=== PATIENT | male | born 1975 | race African-American/Black ===

== ENCOUNTER 2021-11-17 20:42 | Emergency (ER) | payer MEDICAID ==
[~2021-11-17] VITALS: Ht 185.4 cm; Wt 92.0 kg
[~2021-11-17 20:42] MED LIST: ASPI-1497 PO; GLIP5TAB12 PO; METF-414 PO; OMEP20TA2 PO
[2021-11-17 22:18] LABS: BASOPHILS % 0.7 % (0.0-2.0); HEMATOCRIT. 41.1 % (42.0-52.0); HEMOGLOBIN. 13.6 g/dL (14.0-18.0); LYMPHOCYTES % 37.8 % (20.0-50.0); MEAN CORPUSCULAR HEMOGLOBIN 27.8 pg (28.0-32.0); MONOCYTES % 5.7 % (2.0-8.0); NEUTROPHILS % 52.8 % (40.0-76.0); PLATELET 204 x1000/uL (130-400); RED BLOOD CELL COUNT 4.89 mill/uL (4.7-6.1)
[2021-11-17 22:27] LABS: CHLORIDE 105 mEq/L (98-107)
[2021-11-18] MEDS ORDERED: SILVER SULFADIAZINE 1% CREAM 25GM TOP NR
[2021-11-18] MEDS ORDERED: ASPIRIN 325MG EC TABLET PO NR
[2021-11-18 01:30] VITALS: BP 139/79
== END 2021-11-18 02:14 | disposition left against medical advice (07) ==
LOC: ER 20:42 → CANBEDREQ 11-18 11:59
DX: T24.222A Burn of second degree of left knee, initial encounter (principal); T24.221A Burn of second degree of right knee, initial encounter; I10 Essential (primary) hypertension; R94.31 Abnormal electrocardiogram [ECG] [EKG]; R74.8 Abnormal levels of other serum enzymes; E11.9 Type 2 diabetes mellitus without complications; X16.XXXA Contact with hot heating appliances, radiators and pipes, initial encounter; Y93.89 Activity, other specified; Y92.013 Bedroom of single-family (private) house as the place of occurrence of the external cause
CPT/HCPCS: 36415; 80053; 84484; 85025; 93005; 99284

== ENCOUNTER 2021-12-15 23:21 | Emergency (ER) | payer MEDICAID | END 2021-12-16 02:32 | disposition left against medical advice (07) | LOC: ER 23:21 | DX: Z53.21 Procedure and treatment not carried out due to patient leaving prior to being seen by health care provider (principal) ==